=== PATIENT | male | born 1990 | race African-American/Black ===

== ENCOUNTER 2019-06-02 20:05 | Emergency (ER) | payer OTHER ==
[~2019-06-02] VITALS: Ht 182.9 cm; Wt 134.3 kg
[~2019-06-02 20:05] MED LIST: AMOX1TAB12 PO; KETO10TA2 PO; ORPH100T PO; TUSSI PRES-B L120 M1 PO
[2019-06-02] MEDS ORDERED: BACTRIM DS TAB1 EACH PO (21:05)
[2019-06-02] MEDS ORDERED: KETO10TA2 PO (21:05)
== END 2019-06-02 21:52 | disposition home or self-care (01) ==
LOC: ER 20:05
DX: L03.115 Cellulitis of right lower limb (principal)

== ENCOUNTER → 2020-10-29 | Emergency (ER) | payer OTHER ==
[~2020-10-29] VITALS: Ht 182.9 cm; Wt 126.6 kg
[~2020-10-29] MED LIST changes: +BACTRIM DS TAB1 EACH PO; +NABUMETONE750 MG PO; +NORFLEX100MG PO
== END | disposition home or self-care (01) ==
LOC: ER 15:01
DX: R05 Cough (principal); B96.0 Mycoplasma pneumoniae [M. pneumoniae] as the cause of diseases classified elsewhere; M54.2 Cervicalgia; Z11.52 Encounter for screening for COVID-19

== ENCOUNTER → 2020-11-07 | Emergency (ER) | payer OTHER ==
[~2020-11-07] VITALS: Ht 182.9 cm; Wt 130.6 kg
== END | disposition home or self-care (01) ==
LOC: ER 18:08
DX: M54.5 Low back pain (principal)

== ENCOUNTER 2021-06-16 18:49 | Emergency (ER) | payer OTHER ==
[~2021-06-16] VITALS: Ht 182.9 cm; Wt 125.2 kg
[2021-06-16] MEDS ORDERED: AZITHROMYCIN500 MG PO (21:43)
[2021-06-16] MEDS ORDERED: MEDROLPACK PO (21:43)
[2021-06-16] MEDS ORDERED: MUCINEX DM ER1 EAC1 PO (21:43)
== END 2021-06-16 21:57 | disposition home or self-care (01) ==
LOC: ER 18:49
DX: J40 Bronchitis, not specified as acute or chronic (principal); R05.9 Cough, unspecified

== ENCOUNTER 2022-03-02 19:30 | Emergency (ER) | payer OTHER ==
[~2022-03-02] VITALS: Ht 180.3 cm; Wt 135.6 kg
[~2022-03-02 19:30] MED LIST changes: +AZITHROMYCIN500 MG PO; +MEDROLPACK PO; +MUCINEX DM ER1 EAC1 PO
[2022-03-02] MEDS ORDERED: PANADOL (21:05)
[2022-03-02] MEDS ORDERED: ZITHROMAX500 MG PO (22:59)
== END 2022-03-02 23:44 | disposition home or self-care (01) ==
LOC: ER 19:30
DX: J02.8 Acute pharyngitis due to other specified organisms (principal); R50.9 Fever, unspecified

== ENCOUNTER 2023-04-16 19:06 | Emergency (ER) | payer OTHER ==
[~2023-04-16] VITALS: Ht 180.3 cm; Wt 103.4 kg
[~2023-04-16 19:06] MED LIST changes: +PANADOL; +ZITHROMAX500 MG PO
[2023-04-16] MEDS ORDERED: DICLOFENAC SODI75 MG PO (21:12)
== END 2023-04-16 21:14 | disposition home or self-care (01) ==
LOC: ER 19:06
DX: M79.672 Pain in left foot (principal); M77.32 Calcaneal spur, left foot

== ENCOUNTER → 2023-05-11 | Emergency (ER) | payer OTHER ==
[~2023-05-11] VITALS: Ht 180.3 cm; Wt 99.8 kg
[~2023-05-11] MED LIST changes: +DICLOFENAC SODI75 MG PO
== END | disposition left against medical advice (07) ==
LOC: ER 10:50
DX: J06.9 Acute upper respiratory infection, unspecified (principal); Z20.822 Contact with and (suspected) exposure to COVID-19